=== PATIENT | male | born 1955 | race Caucasian/White ===

== ENCOUNTER 2018-02-24 06:16 | Inpatient (IN) | payer OTHER ==
[2018-02-12 09:02] LABS: ABSOLUTE BASOPHILS 0.1 thou/uL (0.0-0.2); ABSOLUTE EOSINOPHILS 0.5 thou/uL (0.0-0.7); ABSOLUTE LYMPHOCYTES 1.9 thou/uL (0.8-5.3); ABSOLUTE MONOCYTES 0.7 thou/uL (0.0-1.2); ABSOLUTE NEUTROPHILS 6.2 thou/uL (1.6-8.1); BASOPHILS 1.3 %; EOSINOPHILS 5.7 %; HEMATOCRIT 38.4 % (42.0-52.0); HEMOGLOBIN 13.2 gm/dL (14.0-18.0); LYMPHOCYTES 19.7 %; MCH 30.4 pg (26.0-34.0); MCHC 34.2 g/dL (28.0-37.0); MCV 88.9 fL (80.0-100.0); MONOCYTES 7.3 %; MPV 7.3 fl. (7.2-11.1); NUCLEATED RBCS 0 /100WBC; PLATELET COUNT* 282 thou/uL (150-400); RBC 4.33 mil/uL (4.50-6.00); RDW-CV 13.8 % (10.5-14.5); WBC 9.4 thou/uL (4.0-11.0)
[2018-02-12 09:09] LABS: CALCIUM 8.4 mg/dL (8.5-10.1); CREATININE 1.1 mg/dL (0.6-1.3); POTASSIUM 3.6 mmol/L (3.5-5.1)
[2018-02-12 09:10] LABS: APTT 26.1 Seconds (25.0-31.3); PROTIME 9.9 Seconds (9.20-11.50)
[2018-02-12 09:14] LABS: ALBUMIN 3.4 g/dL (3.4-5.0); TOTAL BILIRUBIN 0.3 mg/dL (<0.1-1.0); TOTAL PROTEIN 6.9 g/dL (6.4-8.2)
[2018-02-12 10:05] LABS: ESR (SEDRATE) 18 mm/hr (0-20)
--- NOTE | 2018-02-12 15:47 | EKG ---
[place] [address] ELECTROCARDIOGRAM REPORT Name: MATEUSJORDANAFAIZAN Doimngo Room: [facility].#: [id number] Admission: Attend Phys: Shauna Lundberg Discharge: Date of : 55 Report #: [id number] THIS REPORT FOR: //name// [facility] Test Date: 2018-02-12 Test Time: 09:09:12 Pat Name: FAIZAN BUTT Department: Room: Gender: M [employer] Developer: : 1955 Requested By: Shay Shane Order Number: [id number] Zachary MD: Davion Diaz Measurements Intervals [place] Rate: 85 P: 61 OR: 156 QRS: 5 QRSD: 103 T: 37 QT: 393 QTc: 468 Interpretive Statements Sinus rhythm RSR' in V1 or V2, right VCD or RVH Inferior Q waves noted Minimal ST elevation, anterior leads No previous ECG available for comparison Electronically Signed On 02-12-2018 15:46:56 CDT by Davion Diaz [email or web address] <ELECTRONICALLY SIGNED> By: Davion Diaz MD, [facility] 02/12/18 1546 8 8 Davion Diaz MD, FACC /EPI
[2018-02-13 02:11] LABS: GLYCOHEMOGLOBIN (HGB A1C) 4.9 % (4.8-5.6)
[~2018-02-24] VITALS: Ht 172.7 cm; Wt 113.4 kg
[~2018-02-24 06:16] MED LIST: IBUPROFEN 200200 M1 PO; MOBIC15 MG PO; NEURONTIN 300300 M1 PO; ULTRAM 50MG TAB50 MG PO
[2018-02-24 06:49] VITALS: BP 175/98
[2018-02-24 11:21] VITALS: BP 155/83
--- NOTE | 2018-02-24 14:32 | NUR ---
PT ADMITTED TO UNIT AFTER LEFT TKA. PT IS ALERT AND ORIENTED AND DROWSY. PT C/O OF PAIN OF 9/10, GAVE OXYCODONE, PT STATED PAIN STILL 9/10, GAVE MORPHINE. PT HAS BEEN SLEEPING. PT IS ON 2 LITERS OF O2 BY NASAL CANNULA WITH SPO2 OF 99%. PT HAS DANNY HOSE ON RIGHT LEG. SCD FOOT BILATERALLY. ICE PACKS TO LEFT LEG. PULSES 2+ IN ALL EXTREMITIES. SENSATION INTACT TO LEFT LEG. PT HAS DENTURES IN A CUP IN ROOM, TOP PORTION. CALL LIGHT IN REACH. BED ALARM ON. WILL CONTINUE TO MONITOR.
[2018-02-24 16:33] VITALS: BP 135/79
--- NOTE | 2018-02-24 16:59 | NUR ---
pt remained alert and oriented this shift. pt was drowsy upon admission after surgery, however woke up after lunch. pt is on 2 liters o2 by nasal cannula. pt wears cpap at home, brought in from home. pt has not ambulated this shift or urinated yet, will ask pt to try to urinate before shift change. therapy did not see pt today, at time pt was drowsy. pt c/o pain 02/09, gave oxy ir and morphine at this shift. call light in reach. bed alarm on. will continue to monitor.
--- NOTE | 2018-02-24 18:14 | NUR ---
NURSING DOCUMENTATION BY JANETH Vasquez RN REVIEWED
[2018-02-24 20:00] VITALS: BP 145/67
[2018-02-25] VITALS (12 sets, daily range): BP systolic 133–157; BP diastolic 76–93
[2018-02-25 04:13] LABS: HEMATOCRIT 30.8 % (42.0-52.0); HEMOGLOBIN 10.5 gm/dL (14.0-18.0)
--- NOTE | 2018-02-25 06:03 | NUR ---
PATIENT REMAINS ALERT AND ORIENTED X4 THROUGHOUT SHIFT. VITAL SIGNS STABLE ON 2 LITERS OF OXYGEN. CONTINUOUS PULSE OX IN PLACE. PAIN MANAGED WITH PO MEDICATIONS. DENIES NAUSEA. IV PATENT IN THE LEFT FOREARM INFUSING PER ORDERS. REPOSITIONING SELF IN BED. RESTING COMFORTABLY THROUGHOUT THE NIGHT. SURGICAL DRESSING CLEAN, DRY AND INTACT. HOURLY ROUNDING COMPLETE. CALL LIGHT WITHIN REACH. NURSING WILL CONTINUE TO MONITOR.
[2018-02-25] MEDS ORDERED: COLACE 100 MG100 MG PO (08:18)
[2018-02-25] MEDS ORDERED: OXYCODONE HCL 55 MG PO ×2 (08:18→16:03)
[2018-02-25] MEDS ORDERED: ELIQUIS5 MG PO (08:18)
--- NOTE | 2018-02-25 08:59 | NUR ---
RECIEVED O.T. ORDER. WILL DEFER TO P.T. AT THIS TIME. PLEASE ORDER FURTHER O.T. SERVICES IF NEEDED.
--- NOTE | 2018-02-25 11:15 | NUR ---
Nutrition: Pt likely discharging home today. Assessed for nsg risk 2 points. Per [facility], wt has been stable this admit, 250#. Regular diet. Admitted for DJD Lt knee. Labs, RX reviewed. No nutrition concerns at this time.
--- NOTE | 2018-02-25 12:44 | NUR ---
Reassessment by Luz Green was done at 0815 AM
--- NOTE | 2018-02-25 12:48 | NUR ---
I have reviewed and agree with the reassessment performed by Luz Green, assistant in nursing. Left knee surgical dressing dry and intact. No drainage noted.
--- NOTE | 2018-02-25 13:05 | OP ---
[facility] [address] [place] [address] OPERATIVE REPORT Name: MATEUSJORDANAFAIZAN Domingo Room: [address] [place] .R.#: [id number] Admission: 02/24/18 Attend Phys: Shauna Lundberg Discharge: Date of : 55 Report #: [id number] THIS REPORT FOR: //name// CC: Perry Matta DATE OF SERVICE: 02/24/2018 PREOPERATIVE DIAGNOSIS: Severe tricompartmental osteoarthritis of his left knee. POSTOPERATIVE DIAGNOSIS: Severe tricompartmental osteoarthritis of his left knee. SURGERY PERFORMED: Yarely cemented, 3-component left total knee arthroplasty patella, femur and tibia, Persona medial congruent. SURGEON: Shay Shane DO. LICENSED OCCUPATIONAL THERAPIST: Dr. Billings for the severity of the surgery. SECOND SMALL BUSINESS CONSULTANT: The patient's second is Kirill Bermeo DO ANESTHESIA: General anesthetic plus an adductor block. He did receive Ancef 2 grams IV piggyback preoperatively. He has no drainage, no specimen and no complications. GROSS FINDINGS AND INDICATION FOR SURGERY: This 62-year-old gentleman has had a long history of severe osteoarthritis of his left knee, failing conservative care measures for quite some time now. Both radiographically and intraoperatively he had severe varus deformity and osteoarthritis. He had at least a 13 mm loss of bone of the medial compartment and eburnated bone throughout the knee. His collaterals were intact. Post-placement of the total joint arthroplasty through the arc of motion, his knee was totally stable and patella tracked well. SURGERY IN DETAIL: This gentleman was taken to the operating room. He was given a general anesthetic by the Anesthesia Department. Prior to this, he did have a left adductor block. The patient at this point in time otherwise had a well-padded tourniquet placed on his left thigh. He did have the Hibiclens scrub and chlorhexidine prep and sterile draping for a left total knee arthroplasty. A timeout was called and verified by everyone in the room for the left. Surgery [place] [address] OPERATIVE REPORT Name: FAIZAN BUTT Room: [address] IN [facility].#: [id number] Admission: 02/24/18 Attend Phys: Shauna Lundberg Discharge: Date of : 55 Report #: [id number] tourniquet. A midline incision was made with 10 blade scalpel through skin and subcutaneous tissues followed with a second medial parapatellar capsular incision. Hemostasis was maintained. Patella was everted and the knee flexed to 90 degrees. Excess osteophytes were removed. At this point in time, distal femoral drill hole was made in routine fashion. I did go ahead with the flexion contracture that he had, take an additional 1 mm of bone cut off that distal femur, that went quite nicely and then I went down to the tibia side next to do the tibia cut using the external guide across the ankle and secured the wedge proximally measuring off the lateral side. Upon measuring 9 off that lateral side, the pins were appropriately put in position and the deficit that he had medially, I had to move the block down 2 more millimeters and the bone cut was perfect just skimming underneath the surface of the medial bone loss. That wafer of bone was now removed from the tibia. The extension block was applied and he had overall good stability. All pins were now removed. I went back and sized the femur appropriately to a size #11. The drill holes were made. The 4-in-1 block was applied, all cuts were made and removing the bone was next. Once the femur was completed, I went back to the tibial side, appropriately sized the tibia plateau area with a G size trial component. It was secured into position with screws. At this point in time, the femur was put in place on the appropriate position and I did place a 14 mm spacer in the knee and actually fit very nicely with fairly good stability. Once this was accomplished, the patella was sized and I reamed cut the patella with the Yarely reamer and sized it to a 38. Three holes were drilled. The button tracked adequately. At this point in time, I now was preparing this gentleman for a one stage cement technique of his knee. Esmarch of the extremity was now done and the tourniquet inflated to 300 mmHg. The distal femoral drill holes were made. That component was removed. I did go ahead and ream and cruciform cut the tibia baseplate and the baseplate was now removed as well. I did drill that hard medial side of the tibia. He had a cyst over there as well. I curetted out. I did go ahead to the posterior corner, cauterized everything on the medial and the lateral sides. At this point in time, we did the pulsatile lavage irrigation. I did a one stage cementing technique. The G tibia was tamped into position. Excess cement was removed. The 11 femur was tamped into position. Excess cement removed. I stretched him with a 16 mm polyethylene to let that cement harden in extended position and the patella was cemented in place. Once cement had hardened, we did trial motion and felt good with the 16, so that is the one we elected to use for stability. The trial component was removed. I did copiously irrigate that knee, its wash was completed as well. TXA solution was given IV previously. The patient's 16 mm vitamin E polyethylene was seated in the tibial tray and clipped. The tourniquet was now released. Hemostasis was again easily maintained. I did Betadine wash followed with a normal saline irrigation. Capsule was closed with #1 Vicryl and #1 Ticron suture in egnqga-ma-vhtxi fashion, subcutaneous tissues 2-0 Monocryl followed with a running V-Loc and Dermabond to the skin. Mepilex dressing and DANNY hose were applied, transferred off table and taken to [place] [address] OPERATIVE REPORT Name: FAIZAN BUTT Room: [address] IN [facility].#: [id number] Admission: 02/24/18 Attend Phys: Shauna Lundberg Discharge: Date of : 55 Report #: [id number] I attest I was present for all critical aspects of the surgery. Needle, instrument, sponge counts correct. <ELECTRONICALLY SIGNED> By: Shay Shane DO 02/25/18 1305 0946 [id number] alberto Shane DO /nt
[2018-02-25] MEDS ORDERED: ASPIRIN325 PO (14:58)
--- NOTE | 2018-02-25 15:43 | NUR ---
CALLED [facility] PRESCRIPTION IN TO [facility] [address] [place]. COPAY IS $23. INFORMED PT. HE WAS ALERT AND ORIENTED. LIVES WITH HIS ,WHO IS RETIRED. D-I-L CAN HELP ALSO NEEDED. PT.IS NORMALLY INDEPENDENT AT HOME. NEEDS A FRONT WHEEL WALKER. [employer] AUTH'D THROUGH PT.S INSURANCE. ORDER/FACE SHEET FAXED TO HER. GAVE ORDER TO P.T. TO DISPENSE PRIOR TO DISCHARGE. PT.SAID HE WOULD PREFER HOME HEALTH OVER OUTPT.INITIALLY. HE CHOSE [facility] THEY TAKE HIS INSURANCE. HE WAS ASKING IF HE HAD A COPAY. [facility] RAN INSURANCE AND HE IS COVERED AT 100%. INFORMED PT. FAXED ORDERS,H&P,OP REPORT TO HER AT [phone]. PT.SAID HE JUST NEEDS TO CALL HIS TO COME PICK HIM UP. NURSING INFORMED.
[2018-02-25] MEDS ORDERED: NORCO 5-325 TA1 EACH PO (16:05)
--- NOTE | 2018-02-25 16:25 | NUR ---
PT GIVEN DISCHARGE PACKET AND PRESCRIPTIONS AT THIS TIME. IV REMOVED. PT LEFT WITH SPOUSE TO HOME VIA WHEELCHAIR WIHT NURSING STAFF.
--- NOTE | 2018-02-27 10:54 | EKG ---
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: : 1955 Requested By: Jose Jackson Order Number: [id number] MD: Zeferino Terrell Measurements Intervals [place] Rate: 87 P: 40 SC: 155 QRS: -2 QRSD: 107 T: 35 QT: 363 QTc: 437 Interpretive Statements Sinus rhythm RSR' in V1 or V2, right VCD Probable left ventricular hypertrophy Compared to ECG 02/12/2018 09:09:12 Inferior Q waves no longer present ST (T wave) deviation no longer present Electronically Signed On 02-27-2018 10:54:10 CDT by Zeferino Terrell [email or web address] <ELECTRONICALLY SIGNED> By: Zeferino Terrell MD, FACC 02/27/18 1054 1501 1501 Zeferino Terrell MD, FAC /EPI
== END 2018-02-25 16:35 | disposition home health service (06) | DRG 470 ==
LOC: M.SUR 06:16 → M.ORTHSURG 09:50 → M.TBA 09:50 → M.ORTHSURG 10:07 → M.SUR 11:45 → M.ORTHSURG 02-25 16:35
PROVIDERS: Orthopaedic Surgery; ADMIT Internal Medicine
PROC: 0SRD0J9 Replacement of Left Knee Joint with Synthetic Substitute, Cemented, Open Approach (ICD-10-PCS; principal; 2018-02-24)
DX: M17.12 Unilateral primary osteoarthritis, left knee (principal); Z87.891 Personal history of nicotine dependence; Z79.899 Other long term (current) drug therapy

== ENCOUNTER 2018-02-26 14:44 | Emergency (ER) | payer OTHER ==
[~2018-02-26] VITALS: Ht 172.7 cm; Wt 113.4 kg
[~2018-02-26 14:44] MED LIST changes: +ASPIRIN325 PO; +COLACE 100 MG100 MG PO; +ELIQUIS5 MG PO; +NORCO 5-325 TA1 EACH PO; +OXYCODONE HCL 55 MG PO
[2018-02-26 15:34] LABS: ABSOLUTE BASOPHILS 0.1 thou/uL (0.0-0.2); ABSOLUTE EOSINOPHILS 0.3 thou/uL (0.0-0.7); ABSOLUTE LYMPHOCYTES 1.4 thou/uL (0.8-5.3); ABSOLUTE MONOCYTES 1.5 thou/uL (0.0-1.2); ABSOLUTE NEUTROPHILS 8.4 thou/uL (1.6-8.1); BASOPHILS 0.6 %; EOSINOPHILS 2.6 %; HEMATOCRIT 32.3 % (42.0-52.0); HEMOGLOBIN 10.9 gm/dL (14.0-18.0); MCH 29.6 pg (26.0-34.0); MCHC 33.6 g/dL (28.0-37.0); MCV 88.1 fL (80.0-100.0); MONOCYTES 12.7 %; MPV 7.6 fl. (7.2-11.1); NUCLEATED RBCS 0 /100WBC; PLATELET COUNT* 253 thou/uL (150-400); POLYS 72.1 %; RBC 3.66 mil/uL (4.50-6.00); RDW-CV 13.7 % (10.5-14.5); WBC 11.6 thou/uL (4.0-11.0)
[2018-02-26 15:39] LABS: ANION GAP 6 mmol/L (7-16); BUN 13 mg/dL (7-18); CHLORIDE 105 mmol/L (98-107); CO2 26 mmol/L (21-32); CREATININE 0.8 mg/dL (0.6-1.3); GLUCOSE 104 mg/dL (70-99); SODIUM 137 mmol/L (136-145)
[2018-02-26 15:46] LABS: ALBUMIN 2.7 g/dL (3.4-5.0); ALKALINE PHOSPHATASE 88 U/L (46-116); SGOT 20 U/L (15-37); SGPT 25 U/L (30-65); TOTAL BILIRUBIN 0.9 mg/dL (<0.1-1.0); TOTAL PROTEIN 6.4 g/dL (6.4-8.2); TROPONIN-I LEVEL <0.06 ng/mL (<0.06)
[2018-02-26 16:07] LABS: URINE BILIRUBIN NEGATIVE (Negative); URINE BLOOD NEGATIVE (Negative); URINE CLARITY CLEAR; URINE COLOR YELLOW; URINE GLUCOSE-RANDOM NEGATIVE (Negative); URINE KETONES NEGATIVE (Negative); URINE LEUKOCYTES-REFLEX NEGATIVE (Negative); URINE NITRITE-REFLEX NEGATIVE (Negative); URINE PROTEIN NEGATIVE (Negative); URINE SPECIFIC GRAVITY 1.015 (1.005-1.030); URINE UROBILINOGEN 0.2 E.U./dl (0.2-1.0)
[2018-02-26 17:21] VITALS: BP 107/81
== END 2018-02-26 17:23 | disposition home or self-care (01) ==
LOC: M.ERS 14:44
PROVIDERS: Nurse Practitioner Family
DX: I10 Essential (primary) hypertension (principal)